=== PATIENT | female | born 1990 | race American Indian/Alaskan Native ===

== ENCOUNTER 2020-02-14 13:41 | Emergency (ER) | payer MEDICARE ==
--- NOTE | 2020-02-14 16:10 | Emergency Department Report ---
ED General Adult HPI - General Chief complaint: Skin Rash Stated complaint: RASH/FACE Time Seen by Provider: 02/14/20 15:47 Source: patient Mode of arrival: Ambulatory Limitations: No Limitations - History of Present Illness Initial comments: 29-year-old -[place] female patient presents with complaints of possible herpes infection to the right side of her neck x3 days. She states the area is mildly itchy and denies any pain. Patient also denies any previous history of herpes, fever/chills/sweats, drainage, redness, or swelling to the area. - Related Data Allergies Allergy/AdvReac Type Severity Reaction Status Date / Time No Known Allergies Allergy Unverified 02/14/20 13:53 ED Review of Systems ROS: Stated complaint: RASH/FACE Other details as noted in HPI Constitutional: denies: chills, diaphoresis, fever, malaise, weakness ENT: denies: throat pain Respiratory: denies: cough Skin: lesions. denies: change in color ED Past Medical Hx - Past Medical History Previous Medical History?: Yes Hx Psychiatric Treatment: Yes Hx Asthma: Yes Additional medical history: Herpes ED Physical Exam - General Limitations: No Limitations General appearance: alert, in no apparent distress - Head Head exam: Present: atraumatic, normocephalic - Eye Eye exam: Present: normal appearance - ENT ENT exam: Present: mucous membranes moist - Neck Neck exam: Present: normal inspection, full ROM. Absent: tenderness - Respiratory Respiratory exam: Absent: respiratory distress - Cardiovascular Cardiovascular Exam: Present: regular rate - Neurological Exam Neurological exam: Present: alert, oriented X3 - Psychiatric Psychiatric exam: Present: normal affect, normal mood - Skin Skin exam: Present: warm, dry, intact, normal color, other (2 small pimples noted to right upper neck without any surrounding erythema, induration or tenderness to palpation). Absent: rash ED Course Vital Signs 02/14/20 02/14/20 13:53 16:12 Temperature 99 F Pulse Rate 74 Respiratory 16 Rate Blood Pressure 104/37 105/61 [Right] O2 Sat by Pulse 96 Oximetry ED Medical Decision Making - Medical Decision Making 29-year-old -[place] female patient presents with complaints of possible herpes infection to the right side of her neck x3 days. She states the area is mildly itchy and denies any pain. Patient also denies any previous history of herpes, fever/chills/sweats, drainage, redness, or swelling to the area. 2 small pimples noted on exam without any signs of cellulitis. She is well- appearing, her vitals are normal, she is stable for discharge home. Recommend OTC acne face wash and follow-up with PCP. Strict return precautions were discussed in detail with patient who verbalized understanding. Critical care attestation.: If time is entered above; I have spent that time in minutes in the direct care of this critically ill patient, excluding procedure time. ED Disposition Clinical Impression: Acne Qualifiers: Acne type: other acne Qualified Code(s): L70.8 - Other acne Disposition: DC-01 TO HOME OR SELFCARE Is pt being admited?: No Condition: Stable Instructions: Acne (ED) Referrals: [facility] [Provider Group] - 3-5 Days
[2020-02-14 16:12] VITALS: BP 105/61
== END 2020-02-14 16:18 | disposition home or self-care (01) ==
LOC: ED 13:41
DX: L70.8 Other acne (principal); J45.909 Unspecified asthma, uncomplicated
CPT/HCPCS: 99281

== ENCOUNTER 2021-03-29 09:31 | Emergency (ER) | payer MEDICARE ==
[2021-03-29 09:37] VITALS: BP 117/75
[2021-03-29] MEDS ORDERED: LORazepam 2 MG/ML VIAL IM PRN (10:48)
[2021-03-29] MEDS ORDERED: HALOPERIDOL LACTATE 5 MG/1 ML INJ IM PRN (10:48)
[2021-03-29] MEDS ORDERED: diphenhydrAMINE 25 MG CAP PO PRN (10:48)
--- NOTE | 2021-03-29 10:49 | Emergency Department Report ---
ED Psych HPI - General Chief Complaint: Psych Stated Complaint: suicidal ideation Time Seen by Provider: 03/29/21 09:45 Source: patient, RN notes reviewed Mode of arrival: Ambulatory Limitations: No Limitations - History of Present Illness Initial Comments: The patient is a 31-year-old female. She has a history of psychiatric disease. She is not known to myself previously. She presents to the ER today with a complaint of painless suicidality and plan to kill herself. She denies physical pain. She denies overdose. She denies cough, taste symptoms, and urinary symptoms. She is experiencing hallucinations. She is not currently accompanied by friends or family at this time for collateral information. Patient states her symptoms are constant. She does not describe exacerbating factors relieving factors or aggravating factors MD Complaint: suicidal ideation, feels depressed Associated Psychiatric Symptoms: depression, suicidal ideation, auditory hallucinations History of same: Yes Quality: constant Improves With: none Worsens With: none If Self Harm: admits thoughts of, has plan - Related Data Allergies Allergy/AdvReac Type Severity Reaction Status Date / Time No Known Allergies Allergy Unverified 02/14/20 13:53 ED Review of Systems ROS: Stated complaint: suicidal ideation Other details as noted in HPI Constitutional: denies: fever Eyes: denies: eye discharge ENT: denies: epistaxis Respiratory: denies: cough Cardiovascular: denies: chest pain Gastrointestinal: denies: abdominal pain Genitourinary: denies: dysuria Psychiatric: anxiety, depression, suicidal thoughts. denies: homicidal thoughts ED Past Medical Hx - Past Medical History Previous Medical History?: Yes Hx Psychiatric Treatment: Yes Hx Asthma: Yes Additional medical history: Herpes - Surgical History Past Surgical History?: No ED Physical Exam - General Limitations: No Limitations General appearance: alert, in no apparent distress - Head Head exam: Present: atraumatic, normocephalic - Eye Eye exam: Present: normal appearance, EOMI. Absent: nystagmus - ENT ENT exam: Present: normal exam, normal orophraynx, mucous membranes moist, normal external ear exam - Neck Neck exam: Present: normal inspection, full ROM. Absent: tenderness, meningismus - Respiratory Respiratory exam: Present: normal lung sounds bilaterally. Absent: respiratory distress, wheezes, rales, rhonchi, stridor, decreased breath sounds - Cardiovascular Cardiovascular Exam: Present: regular rate, normal rhythm, normal heart sounds. Absent: bradycardia, tachycardia, irregular rhythm, systolic murmur, diastolic murmur, rubs, gallop - GI/Abdominal GI/Abdominal exam: Present: soft. Absent: distended, tenderness, guarding, rebound, rigid, pulsatile mass - Extremities Exam Extremities exam: Present: normal inspection, full ROM, other (2+ pulses noted in the bilateral upper and lower extremities. There is no palpable cord. negative Homans sign. Muscular compartments are soft. The pelvis is stable.). Absent: pedal edema, joint swelling, calf tenderness - Back Exam Back exam: Present: normal inspection, full ROM. Absent: tenderness, CVA tenderness (R), CVA tenderness (L), paraspinal tenderness, vertebral tenderness - Neurological Exam Neurological exam: Present: alert, normal gait, other (No facial droop. Tongue midline. Extraocular movements intact bilaterally. Facial sensation intact to light touch in V1, V2, V3 distribution bilaterally. 5 and a 5 strength in 4 extremities. Sensation intact to light touch in 4 extremities.). Absent: motor sensory deficit - Psychiatric Psychiatric exam: Present: suicidal ideation, other (Patient speaks with an infantile voice) - Skin Skin exam: Present: warm, dry, intact, normal color. Absent: rash ED Course Vital Signs 03/29/21 09:34 Temperature 97.9 F Pulse Rate 70 Respiratory 16 Rate Blood Pressure 117/75 [Left] O2 Sat by Pulse 99 Oximetry - Reevaluation(s) Reevaluation #1: 03/29/21 11:35 Differential diagnosis, including but not limited to: Depression, psychosis, medical clearance for psychiatric placement Assessment and plan: 31-year-old female, who was afebrile, with reassuring vital signs, he was in no acute distress, who is calm and cooperative, who presents to the ER today with a complaint of hallucinations and suicidality. She meets criteria for 1013 hold/involuntary hold. I have filled out and ordered 1013. Screening laboratory studies ordered. Psychiatric consultation ordered. Urinalysis pending. Covid swab ordered in anticipation of psychiatric disposition and placement. 03/29/21 12:55 Laboratory studies are reviewed and are unremarkable. Psychiatric consultation is appreciated. At this point in time, this patient does not appear to have an immediate medical contraindication to psychiatric admission, evaluation, consultation and placement. ED Medical Decision Making - Lab Data Result diagrams: 03/29/21 10:55 03/29/21 10:55 Vital Signs 03/29/21 09:34 Temperature 97.9 F Pulse Rate 70 Respiratory 16 Rate Blood Pressure 117/75 [Left] O2 Sat by Pulse 99 Oximetry Lab Results 03/29/21 03/29/21 03/29/21 Range/Units 10:55 10:55 10:55 WBC 3.7 L (4.5-11.0) K/mm3 RBC 4.60 (3.65-5.03) M/mm3 Hgb 12.8 (10.1-14.3) gm/dl Hct 39.8 (30.3-42.9) % MCV 86 (79-97) fl MCH 28 (28-32) pg MCHC 32 (30-34) % RDW 14.8 (13.2-15.2) % Plt Count 266 (140-440) K/mm3 Lymph % (Auto) 34.2 (13.4-35.0) % Andrew % (Auto) 10.2 H (0.0-7.3) % Eos % (Auto) 5.2 H (0.0-4.3) % Baso % (Auto) 1.7 (0.0-1.8) % Lymph # (Auto) 1.3 (1.2-5.4) K/mm3 Andrew # (Auto) 0.4 (0.0-0.8) K/mm3 Eos # (Auto) 0.2 (0.0-0.4) K/mm3 Baso # (Auto) 0.1 (0.0-0.1) K/mm3 Seg Neutrophils % 48.7 (40.0-70.0) % Seg Neutrophils # 1.8 (1.8-7.7) K/mm3 Sodium 138 (137-145) mmol/L Potassium 4.2 (3.6-5.0) mmol/L Chloride 101.7 (98-107) mmol/L Carbon Dioxide 22 (22-30) mmol/L Anion Gap 19 mmol/L BUN 11 (7-17) mg/dL Creatinine 0.7 (0.6-1.2) mg/dL Estimated GFR > 60 ml/min BUN/Creatinine Ratio 16 % Glucose 85 (65-100) mg/dL Calcium 8.8 (8.4-10.2) mg/dL HCG, Qual (Negative) Acetaminophen 5.0 L (10.0-30.0) ug/mL 03/29/21 Range/Units 10:55 WBC (4.5-11.0) K/mm3 RBC (3.65-5.03) M/mm3 Hgb (10.1-14.3) gm/dl Hct (30.3-42.9) % MCV (79-97) fl MCH (28-32) pg MCHC (30-34) % RDW (13.2-15.2) % Plt Count (140-440) K/mm3 Lymph % (Auto) (13.4-35.0) % Andrew % (Auto) (0.0-7.3) % Eos % (Auto) (0.0-4.3) % Baso % (Auto) (0.0-1.8) % Lymph # (Auto) (1.2-5.4) K/mm3 Andrew # (Auto) (0.0-0.8) K/mm3 Eos # (Auto) (0.0-0.4) K/mm3 Baso # (Auto) (0.0-0.1) K/mm3 Seg Neutrophils % (40.0-70.0) % Seg Neutrophils # (1.8-7.7) K/mm3 Sodium (137-145) mmol/L Potassium (3.6-5.0) mmol/L Chloride (98-107) mmol/L Carbon Dioxide (22-30) mmol/L Anion Gap mmol/L BUN (7-17) mg/dL Creatinine (0.6-1.2) mg/dL Estimated GFR ml/min BUN/Creatinine Ratio % Glucose (65-100) mg/dL Calcium (8.4-10.2) mg/dL HCG, Qual Negative (Negative) Acetaminophen (10.0-30.0) ug/mL Lab Results 03/29/21 03/29/21 03/29/21 Range/Units 10:55 10:55 10:55 WBC 3.7 L (4.5-11.0) K/mm3 RBC 4.60 (3.65-5.03) M/mm3 Hgb 12.8 (10.1-14.3) gm/dl Hct 39.8 (30.3-42.9) % MCV 86 (79-97) fl MCH 28 (28-32) pg MCHC 32 (30-34) % RDW 14.8 (13.2-15.2) % Plt Count 266 (140-440) K/mm3 Lymph % (Auto) 34.2 (13.4-35.0) % Andrew % (Auto) 10.2 H (0.0-7.3) % Eos % (Auto) 5.2 H (0.0-4.3) % Baso % (Auto) 1.7 (0.0-1.8) % Lymph # (Auto) 1.3 (1.2-5.4) K/mm3 Andrew # (Auto) 0.4 (0.0-0.8) K/mm3 Eos # (Auto) 0.2 (0.0-0.4) K/mm3 Baso # (Auto) 0.1 (0.0-0.1) K/mm3 Seg Neutrophils % 48.7 (40.0-70.0) % Seg Neutrophils # 1.8 (1.8-7.7) K/mm3 Sodium 138 (137-145) mmol/L Potassium 4.2 (3.6-5.0) mmol/L Chloride 101.7 (98-107) mmol/L Carbon Dioxide 22 (22-30) mmol/L Anion Gap 19 mmol/L BUN 11 (7-17) mg/dL Creatinine 0.7 (0.6-1.2) mg/dL Estimated GFR > 60 ml/min BUN/Creatinine Ratio 16 % Glucose 85 (65-100) mg/dL Calcium 8.8 (8.4-10.2) mg/dL TSH 0.639 (0.270-4.200) mlU/mL HCG, Qual (Negative) Urine Color (Yellow) Urine Turbidity (Clear) Urine pH (5.0-7.0) Ur Specific [place] (1.003-1.030) Urine Protein (Negative) mg/dL Urine Glucose (UA) (Negative) mg/dL Urine Ketones (Negative) mg/dL Urine Blood (Negative) Urine Nitrite (Negative) Urine Bilirubin (Negative) Urine Urobilinogen (<2.0) mg/dL Ur Leukocyte Esterase (Negative) Urine WBC (Auto) (0.0-6.0) /HPF Urine RBC (Auto) (0.0-6.0) /HPF U Epithel Cells (Auto) (0-13.0) /HPF Urine Mucus /HPF Salicylates (2.8-20.0) mg/dL Urine Opiates Screen Urine Methadone Screen Acetaminophen (10.0-30.0) ug/mL Ur Barbiturates Screen Ur Phencyclidine Scrn Ur Amphetamines Screen U Benzodiazepines Scrn Urine Cocaine Screen U Marijuana (THC) Screen Drugs of Abuse Note Plasma/Serum Alcohol (0-0.07) % 03/29/21 03/29/21 03/29/21 Range/Units 10:55 10:55 10:55 WBC (4.5-11.0) K/mm3 RBC (3.65-5.03) M/mm3 Hgb (10.1-14.3) gm/dl Hct (30.3-42.9) % MCV (79-97) fl MCH (28-32) pg MCHC (30-34) % RDW (13.2-15.2) % Plt Count (140-440) K/mm3 Lymph % (Auto) (13.4-35.0) % Andrew % (Auto) (0.0-7.3) % Eos % (Auto) (0.0-4.3) % Baso % (Auto) (0.0-1.8) % Lymph # (Auto) (1.2-5.4) K/mm3 Andrew # (Auto) (0.0-0.8) K/mm3 Eos # (Auto) (0.0-0.4) K/mm3 Baso # (Auto) (0.0-0.1) K/mm3 Seg Neutrophils % (40.0-70.0) % Seg Neutrophils # (1.8-7.7) K/mm3 Sodium (137-145) mmol/L Potassium (3.6-5.0) mmol/L Chloride (98-107) mmol/L Carbon Dioxide (22-30) mmol/L Anion Gap mmol/L BUN (7-17) mg/dL Creatinine (0.6-1.2) mg/dL Estimated GFR ml/min BUN/Creatinine Ratio % Glucose (65-100) mg/dL Calcium (8.4-10.2) mg/dL TSH (0.270-4.200) mlU/mL HCG, Qual (Negative) Urine Color (Yellow) Urine Turbidity (Clear) Urine pH (5.0-7.0) Ur Specific [place] (1.003-1.030) Urine Protein (Negative) mg/dL Urine Glucose (UA) (Negative) mg/dL Urine Ketones (Negative) mg/dL Urine Blood (Negative) Urine Nitrite (Negative) Urine Bilirubin (Negative) Urine Urobilinogen (<2.0) mg/dL Ur Leukocyte Esterase (Negative) Urine WBC (Auto) (0.0-6.0) /HPF Urine RBC (Auto) (0.0-6.0) /HPF U Epithel Cells (Auto) (0-13.0) /HPF Urine Mucus /HPF Salicylates < 0.3 L (2.8-20.0) mg/dL Urine Opiates Screen Urine Methadone Screen Acetaminophen 5.0 L (10.0-30.0) ug/mL Ur Barbiturates Screen Ur Phencyclidine Scrn Ur Amphetamines Screen U Benzodiazepines Scrn Urine Cocaine Screen U Marijuana (THC) Screen Drugs of Abuse Note Plasma/Serum Alcohol < 0.01 (0-0.07) % 03/29/21 03/29/21 03/29/21 Range/Units 10:55 11:57 11:57 WBC (4.5-11.0) K/mm3 RBC (3.65-5.03) M/mm3 Hgb (10.1-14.3) gm/dl Hct (30.3-42.9) % MCV (79-97) fl MCH (28-32) pg MCHC (30-34) % RDW (13.2-15.2) % Plt Count (140-440) K/mm3 Lymph % (Auto) (13.4-35.0) % Andrew % (Auto) (0.0-7.3) % Eos % (Auto) (0.0-4.3) % Baso % (Auto) (0.0-1.8) % Lymph # (Auto) (1.2-5.4) K/mm3 Andrew # (Auto) (0.0-0.8) K/mm3 Eos # (Auto) (0.0-0.4) K/mm3 Baso # (Auto) (0.0-0.1) K/mm3 Seg Neutrophils % (40.0-70.0) % Seg Neutrophils # (1.8-7.7) K/mm3 Sodium (137-145) mmol/L Potassium (3.6-5.0) mmol/L Chloride (98-107) mmol/L Carbon Dioxide (22-30) mmol/L Anion Gap mmol/L BUN (7-17) mg/dL Creatinine (0.6-1.2) mg/dL Estimated GFR ml/min BUN/Creatinine Ratio % Glucose (65-100) mg/dL Calcium (8.4-10.2) mg/dL TSH (0.270-4.200) mlU/mL HCG, Qual Negative (Negative) Urine Color Yellow (Yellow) Urine Turbidity Slightly-cloudy (Clear) Urine pH 6.0 (5.0-7.0) Ur Specific [place] 1.027 (1.003-1.030) Urine Protein <15 mg/dl (Negative) mg/dL Urine Glucose (UA) Neg (Negative) mg/dL Urine Ketones Neg (Negative) mg/dL Urine Blood Neg (Negative) Urine Nitrite Neg (Negative) Urine Bilirubin Neg (Negative) Urine Urobilinogen 2.0 (<2.0) mg/dL Ur Leukocyte Esterase Neg (Negative) Urine WBC (Auto) < 1.0 (0.0-6.0) /HPF Urine RBC (Auto) 2.0 (0.0-6.0) /HPF U Epithel Cells (Auto) 13.0 (0-13.0) /HPF Urine Mucus 1+ /HPF Salicylates (2.8-20.0) mg/dL Urine Opiates Screen Negative Urine Methadone Screen Negative Acetaminophen (10.0-30.0) ug/mL Ur Barbiturates Screen Negative Ur Phencyclidine Scrn Negative Ur Amphetamines Screen Negative U Benzodiazepines Scrn Negative Urine Cocaine Screen Negative U Marijuana (THC) Screen Negative Drugs of Abuse Note Disclamer Plasma/Serum Alcohol (0-0.07) % Critical care attestation.: If time is entered above; I have spent that time in minutes in the direct care of this critically ill patient, excluding procedure time. ED Disposition Clinical Impression: Medical clearance for psychiatric admission Disposition: [address] [place] [address] Is pt being admited?: No Does the pt Need Aspirin: No Condition: Good Referrals: PRIMARY CARE,MD [Primary Care Provider] - 3-5 Days
--- NOTE | 2021-03-29 11:24 | Consultation ---
History of Present Illness - Reason for Consult Consult date: 03/29/21 Reason for consult: mental health evaluation - History of Present Psychiatric Illness The patient is a 31 year old female with history of Schizophrenia, Bipolar, and Anxiety disorder. In my interview with the patient, she presents with disorganized thoughts. She endorses auditory and visual hallucinations stating " I see her the so called August ,and I hear voices telling me to kill myself." The patient reports going to [facility] out-patient, states she is on Abilify Maintena WEST however, unsure if the information is accurate due to the patients current mentation. Diagnoses:Schizophrenia, Bipolar, Anxiety Suicide attempts or Self-harm behavior: Yes Prior psychiatric hospitalizations: Yes Substance Abuse history:Denies Previous psychiatric medications tried:Unknown Outpatient treatment: [facility] PAST MEDICAL HISTORY: None reported or document Family Psychiatric History: None reported or documented SOCIAL HISTORY Marital Status: Single Living Arrangements: Lives with uncle Employment Status: employed Access to guns/weapons: Denies Education: unknown History of Abuse: Denies Legal History: unknown REVIEW OF SYSTEMS Constitutional: Negative for weight loss ENT: Negative for stridor Respiratory: Negative for cough or hemoptysis All other systems reviewed and are negative MENTAL STATUS EXAMINATION General Appearance and Behavior: Age appropriate, good hygiene, wearing appropriate clothes. calm, cooperative Cooperation: Cooperative Psychomotor Behavior: Psychomotor normal Mood: hallucinations Affect and affective range: congruent with mood Thought Process: hallucinations Thought Content:Suicidal Speech: slurred Suicidal Ideation: Yes Homicidal Ideation: Denies Hallucinations: Auditory/visual Delusions: paranoid Impulse Control: Normal Insight and Judgment: Limited insight and poorjudgment Memory: Limited Attention: Distractible Orientation: a/o x 2 Assessment (1)Schizophrenia (2) Current Visit: Yes Status: Acute Treatment Plan Continue 1013 Start Abilify 10 mg po daily Continue previously prescribed medications. The patient to comply with previously prescribed medications Risks, benefits and alternatives of medications discussed with the patient, questions answered and consent obtained from patient. PSYCHOTHERAPY: Supportive psychotherapy provided MEDICAL: Per primary team DELIRIUM PRECAUTIONS: Please re-orient patient frequently, keep lights on during the day, and minimize benzodiazepines and opiates as these medications could worsen patient's confusion. AIRLINE PILOT: Defer to primary DISPOSITION: Recommend acute psychiatric inpatient treatment. The sitter to give the patient resources and safety plan Will follow. Thanks Case staffed with Dr. Osuna Medications and Allergies Objective Medications and Allergies Medications and Allergies Allergies Allergy/AdvReac Type Severity Reaction Status Date / Time No Known Allergies Allergy Unverified 02/14/20 13:53 Active Meds: Active Medications Diphenhydramine HCl (Diphenhydramine 25 Mg Cap) 50 mg PO QHS PRN PRN Reason: Insomnia Haloperidol Lactate (Haloperidol Lactate 5 Mg/1 Ml Inj) 5 mg IM Q6HR PRN PRN Reason: Agitation Lorazepam (Lorazepam 2 Mg/Ml Vial) 2 mg IM Q4HR PRN PRN Reason: Agitation Mental Status Exam - Vital signs Last Vital Signs Temp 97.9 F 03/29/21 09:34 Pulse 70 03/29/21 09:34 Resp 16 03/29/21 09:34 BP 117/75 03/29/21 09:34 Pulse Ox 99 03/29/21 09:34 Results Result Diagrams: 03/29/21 10:55 All other labs normal.
[2021-03-29 11:25] LABS: Blood Urea Nitrogen 11 mg/dL (7-17); Calcium 8.8 mg/dL (8.4-10.2); Hemolysis Index 13
[2021-03-29 11:30] LABS: BUN/Creatinine Ratio 16
[2021-03-29 11:34] LABS: Basophils # (Auto) 0.1 K/mm3 (0.0-0.1); Basophils % (Auto) 1.7 % (0.0-1.8); Eosinophils # (Auto) 0.2 K/mm3 (0.0-0.4); Eosinophils % (Auto) 5.2 % (0.0-4.3); Hematocrit 39.8 % (30.3-42.9); Hemoglobin 12.8 gm/dl (10.1-14.3); Lymphocytes # (Auto) 1.3 K/mm3 (1.2-5.4); Lymphocytes % (Auto) 34.2 % (13.4-35.0); Mean Corpuscular HGB Conc 32 % (30-34); Mean Corpuscular Volume 86 fl (79-97); Monocytes # (Auto) 0.4 K/mm3 (0.0-0.8); Monocytes % (Auto) 10.2 % (0.0-7.3); Platelet Count 266 K/mm3 (140-440); Red Cell Distribution Width 14.8 % (13.2-15.2)
[2021-03-29] MEDS ORDERED: ARIPiprazole 10 MG TAB PO SCH (12:00)
[2021-03-29 12:07] LABS: Bilirubin,Urine NEG (Negative); Blood,Urine NEG (Negative); Color,Urine Yellow (Yellow); Mucus,Urine 1+ /HPF; Protein,Urine <15 mg/dL mg/dL (Negative); WBC,Urine < 1.0 /HPF (0.0-6.0)
[2021-03-29 12:17] LABS: Amphetamine Screen,Urine Negative; Benzodiazepines Screen,Urine Negative; Cannabinoid Screen,Urine Negative; Cocaine Screen,Urine Negative; Methadone Screen,Urine Negative; Opiate Screen,Urine Negative
== END 2021-03-29 18:36 ==
LOC: ED 09:31
DX: Z04.6 Encounter for general psychiatric examination, requested by authority (principal); R45.851 Suicidal ideations; J45.909 Unspecified asthma, uncomplicated; R94.6 Abnormal results of thyroid function studies
CPT/HCPCS: 36415; 80048; 80307; 80320; 81001; 84443; 84703; 85025; 99285; G0480

== ENCOUNTER 2021-05-01 11:09 | Emergency (ER) | payer MEDICARE ==
--- NOTE | 2021-05-01 11:57 | Emergency Department Report ---
ED Asthma HPI - General Chief Complaint: Adult Asthma Stated Complaint: COUGH/CHILLS Time Seen by Provider: 05/01/21 11:54 Source: patient Mode of arrival: Ambulatory Limitations: No Limitations - History of Present Illness Initial Comments: Patient presents secondary to an asthma exacerbation and cough. She has been out of her inhaler for over a month. She has had cough with congestion. She denies fever. She reports that her hands are little tingly as well. That has been present for weeks. She came in primarily because she needed a refill of her inhaler. She one of the other issues discussed as well. There is no recent travel or trauma. She has had no recent illness. She has no history of chest pain or back pain. She has had no vomiting or diarrhea. - Related Data Previous Rx's Medication Instructions Recorded Last Taken Type Albuterol Sulfate [Proventil Hfa] 2 puff IH 4XD #1 hfa.aer.ad 05/01/21 Unknown Rx Guaifenesin/Pseudoephedrne HCl 1 each PO BID #20 tab.er.12h 05/01/21 Unknown Rx [Mucinex D ER Tablet] Allergies Allergy/AdvReac Type Severity Reaction Status Date / Time Penicillins Allergy Unknown Unknown Verified 05/01/21 11:54 ED Review of Systems ROS: Stated complaint: COUGH/CHILLS Other details as noted in HPI Comment: All other systems reviewed and negative Constitutional: denies: fever Eyes: denies: eye pain ENT: denies: throat pain Respiratory: see HPI Cardiovascular: denies: chest pain Endocrine: denies: unexplained weight loss Gastrointestinal: denies: abdominal pain Genitourinary: denies: dysuria Musculoskeletal: denies: back pain Skin: denies: rash Neurological: denies: headache Hematological/Lymphatic: denies: easy bruising ED Past Medical Hx - Past Medical History Hx Psychiatric Treatment: Yes Hx Asthma: Yes Additional medical history: Herpes - Family History Family history: asthma - Medications Home Medications: Home Medications Medication Instructions Recorded Confirmed Last Taken Type Albuterol Sulfate [Proventil Hfa] 2 puff IH 4XD #1 hfa.aer.ad 05/01/21 Unknown Rx Guaifenesin/Pseudoephedrne HCl 1 each PO BID #20 tab.er.12h 05/01/21 Unknown Rx [Mucinex D ER Tablet] ED Physical Exam - General Limitations: No Limitations, Other (Pulse ox noted and normal) General appearance: alert, in no apparent distress - Head Head exam: Present: atraumatic, normocephalic - Eye Eye exam: Present: normal appearance, EOMI - ENT ENT exam: Present: normal orophraynx, normal external ear exam - Neck Neck exam: Present: normal inspection, meningismus - Respiratory Respiratory exam: Present: normal lung sounds bilaterally. Absent: respiratory distress - Cardiovascular Cardiovascular Exam: Present: regular rate, normal rhythm - GI/Abdominal GI/Abdominal exam: Present: soft. Absent: tenderness - Extremities Exam Extremities exam: Present: normal capillary refill - Back Exam Back exam: Absent: CVA tenderness (R), CVA tenderness (L) - Neurological Exam Neurological exam: Present: alert, normal gait - Psychiatric Psychiatric exam: Present: normal affect, normal mood - Skin Skin exam: Present: warm ED Course Vital Signs 05/01/21 11:51 Temperature 98.1 F Pulse Rate 65 Respiratory 17 Rate Blood Pressure 98/67 [Right] O2 Sat by Pulse 95 Oximetry - Reevaluation(s) Reevaluation #1: 05/01/21 12:13 Patient was discharged ED Medical Decision Making - Medical Decision Making Patient presents with respiratory issues and prescription refill. She is in no distress. She not actively wheezing. She can certainly get a prescription refill. She reported having some phlegm but is not coughing here. There is no evidence of respiratory infection, but we can certainly prescribe Mucinex. She does not have symptoms of suggest pneumonia. There is no evidence of congestive heart failure. She does not appear to be toxic. Critical Care Time: No Critical care attestation.: If time is entered above; I have spent that time in minutes in the direct care of this critically ill patient, excluding procedure time. ED Disposition Clinical Impression: Medication refill, Paresthesias Asthma exacerbation Qualifiers: Asthma severity: mild Asthma persistence: intermittent Qualified Code(s): J45.21 - Mild intermittent asthma with (acute) exacerbation Disposition: 01 HOME / SELF CARE / HOMELESS Is pt being admited?: No Condition: Stable Instructions: Asthma, Adult, Peak Flow Meter Additional Instructions: DRINK WATER. USE YOUR INHALER. SEE YOUR DOCTOR FOR RECHECK. Prescriptions: Guaifenesin/Pseudoephedrne HCl [Mucinex D ER Tablet] 1 each PO BID #20 tab.er.12h Albuterol Sulfate [Proventil Hfa] 2 puff IH 4XD #1 hfa.aer.ad Referrals: PRIMARY CARE, [Primary Care Provider] - 3-5 Days
[2021-05-01 12:24] VITALS: BP 120/70
== END 2021-05-01 12:24 | disposition home or self-care (01) ==
LOC: ED 11:09
DX: J45.901 Unspecified asthma with (acute) exacerbation (principal); Z76.0 Encounter for issue of repeat prescription; R20.0 Anesthesia of skin; Z88.0 Allergy status to penicillin; Z79.899 Other long term (current) drug therapy
CPT/HCPCS: 99282

== ENCOUNTER 2021-07-10 10:03 | Emergency (ER) | payer MEDICARE ==
[2021-07-10] MEDS ORDERED: BENZONATATE 100 MG CAP PO ONE (13:07)
--- NOTE | 2021-07-10 13:43 | Vascular Lab Report ---
. DUPLEX DOPPLER LOWER EXTREMITY VEINS, RIGHT INDICATION / CLINICAL INFORMATION: RLE swelling. TECHNIQUE: Duplex doppler imaging was performed through the veins of the right lower extremity using venous comp ression and other maneuvers. COMPARISON: None available. FINDINGS: RIGHT COMMON FEMORAL VEIN: Negative. RIGHT FEMORAL VEIN: Negative. RIGHT POPLITEAL VEIN: Negative. RIGHT CALF VEINS: Negative. ADDITIONAL FINDINGS: None. IMPRESSION: 1. No sonographic evidence for DVT in the right lower extremity. Signer Name: Valentin Lares MD Signed: 07/10/2021 1:39 PM Workstation Name: [email or web address]
--- NOTE | 2021-07-10 14:12 | Emergency Department Report ---
ED General Adult HPI - General Chief complaint: Upper Respiratory Infection Stated complaint: COUGH/PROBLEMS WALKING Source: patient Mode of arrival: Ambulatory Limitations: No Limitations - History of Present Illness Initial comments: Patient is a 31-year-old female here with complaint of cough. Patient has history of asthma. Patient also has a complaint of a right knee pain. She states that she has had this pain for several weeks and notes that it is swollen. She is unsure if she had any trauma to the knee. She also complains of some mild abdominal pain. She has not had nausea or vomiting. She also states this has been going on for quite a while. - Related Data Previous Rx's Medication Instructions Recorded Last Taken Type Albuterol Sulfate [Proventil Hfa] 2 puff IH 4XD #1 hfa.aer.ad 07/10/21 Unknown Rx Guaifenesin/Pseudoephedrne HCl 1 each PO BID #20 tab.er.12h 07/10/21 Unknown Rx [Mucinex D ER Tablet] Allergies Allergy/AdvReac Type Severity Reaction Status Date / Time Penicillins Allergy Unknown Unknown Verified 05/01/21 11:54 ED Review of Systems ROS: Stated complaint: COUGH/PROBLEMS WALKING Other details as noted in HPI Constitutional: denies: chills, fever Eyes: denies: eye pain, eye discharge, vision change Respiratory: cough. denies: shortness of breath, SOB with exertion Cardiovascular: denies: chest pain, palpitations Endocrine: no symptoms reported Gastrointestinal: abdominal pain. denies: nausea, vomiting Genitourinary: denies: urgency, dysuria, discharge Musculoskeletal: denies: back pain, joint swelling, arthralgia Skin: denies: rash, lesions Neurological: denies: headache, weakness, paresthesias Psychiatric: denies: anxiety, depression Hematological/Lymphatic: denies: easy bleeding, easy bruising ED Past Medical Hx - Past Medical History Hx Psychiatric Treatment: Yes Hx Asthma: Yes Additional medical history: Herpes - Medications Home Medications: Home Medications Medication Instructions Recorded Confirmed Last Taken Type Albuterol Sulfate [Proventil Hfa] 2 puff IH 4XD #1 hfa.aer.ad 07/10/21 Unknown Rx Guaifenesin/Pseudoephedrne HCl 1 each PO BID #20 tab.er.12h 07/10/21 Unknown Rx [Mucinex D ER Tablet] ED Physical Exam - General Limitations: No Limitations General appearance: alert, in no apparent distress - Head Head exam: Present: atraumatic, normocephalic - Eye Eye exam: Present: normal appearance - ENT ENT exam: Present: mucous membranes moist - Neck Neck exam: Present: normal inspection - Respiratory Respiratory exam: Present: normal lung sounds bilaterally. Absent: respiratory distress - Cardiovascular Cardiovascular Exam: Present: regular rate, normal rhythm. Absent: systolic murmur, diastolic murmur, rubs, gallop - GI/Abdominal GI/Abdominal exam: Present: soft, normal bowel sounds. Absent: tenderness - Rectal Rectal exam: Present: deferred - Extremities Exam Extremities exam: Present: joint swelling (Right knee, no instability noted) - Back Exam Back exam: Present: normal inspection - Neurological Exam Neurological exam: Present: alert - Psychiatric Psychiatric exam: Present: normal affect, normal mood - Skin Skin exam: Present: warm, dry, intact, normal color. Absent: rash ED Course Vital Signs 07/10/21 10:33 Temperature 97.6 F Pulse Rate 73 Respiratory 16 Rate Blood Pressure 108/76 [Left] O2 Sat by Pulse 97 Oximetry - Reevaluation(s) Reevaluation #1: 07/10/21 14:10 Doppler negative for DVT. ED Medical Decision Making - Medical Decision Making 31-year-old female here with complaint of cough. She also notes some mild abdominal pain, right knee pain. Plan for chest abdominal x-rays, x-ray of the right knee as well as ultrasound the right lower extremity. We will also give Tessalon Perles and patient likely to be discharged pending results. Critical care attestation.: If time is entered above; I have spent that time in minutes in the direct care of this critically ill patient, excluding procedure time. ED Disposition Clinical Impression: Knee pain, Cough Is pt being admited?: No Does the pt Need Aspirin: No Condition: Stable Instructions: Acute Knee Pain, Adult, Cough, Adult, [id number] Prescriptions: Guaifenesin/Pseudoephedrne HCl [Mucinex D ER Tablet] 1 each PO BID #20 tab.er .12h Albuterol Sulfate [Proventil Hfa] 2 puff IH 4XD #1 hfa.aer.ad Forms: Work/School Release Form(ED)
[2021-07-10 15:18] LABS: HCG Qualitative,Urine Negative (Negative)
--- NOTE | 2021-07-10 15:53 | Emergency Department Report ---
Blank Doc - Documentation Documentation: I assumed care with x-rays pending. X-rays were reviewed. Patient was discharged as written by the prior physician.
--- NOTE | 2021-07-10 16:00 | XRay Report ---
EXAMINATION: XR abd series w cxr 1V, INDICATION / CLINICAL INFORMATION: RLE swelling. COMPARISON: None available. FINDINGS: TUBES / LINES: None. CHEST: Visualized chest shows no significant abnormality. BOWEL GAS PATTERN: Bowel gas pattern is nonobstructive. Moderate colonic stool burden. FREE AIR / EXTRALUMINAL GAS: None seen. ADDITIONAL FINDINGS: Herniorrhaphy mesh noted overlying the abdomen. IMPRESSION: 1. No evidence of acute abnormality. 2. Moderate colonic stool burden, may reflect constipation. Signer Name: Valentin Lares MD Signed: 07/10/2021 3:56 PM Workstation Name: [id number]
--- NOTE | 2021-07-10 16:07 | XRay Report ---
RIGHT KNEE 3 VIEW(S) INDICATION / CLINICAL INFORMATION: r knee swelling COMPARISON: None available. FINDINGS: BONES / JOINT(S): No acute fracture or subluxation. No significant arthritis. No significant joint ef fusion. SOFT TISSUES: No significant abnormality. ADDITIONAL FINDINGS: None. IMPRESSION: No acute osseous findings in the right knee. Signer Name: Valentin Lares MD Signed: 07/10/2021 4:03 PM Workstation Name: [id number]
[2021-07-10 17:08] VITALS: BP 95/60
== END 2021-07-10 17:08 ==
LOC: ED 10:03
DX: R05.9 Cough, unspecified (principal); M25.561 Pain in right knee; J45.909 Unspecified asthma, uncomplicated
CPT/HCPCS: 74022; 81025; 99284

== ENCOUNTER 2021-07-31 09:19 | Emergency (ER) | payer MEDICARE ==
[2021-07-31 09:23] VITALS: BP 124/82
--- NOTE | 2021-07-31 10:32 | Emergency Department Report ---
ED Psych HPI - General Chief Complaint: Psych Stated Complaint: HI-A/V HALLUCINATIONS Time Seen by Provider: 07/31/21 09:55 Source: patient, EMS Mode of arrival: Ambulatory - History of Present Illness Initial Comments: Patient is 31 years old female with history of bipolar and schizophrenia. Patient presented to the ER for mental health evaluation. Patient stated that she wanted to kill herself by biting herself. Patient also stated that she wanted to kill her friend August because August wanted to kill her. Patient stated that she is hearing voices asking her to kill herself. She also reported visual hallucination. Patient looks depressed. MD Complaint: suicidal ideation, feels depressed -: days(s) Associated Psychiatric Symptoms: depression, suicidal ideation, homicidal ideation, auditory hallucinations, visual hallucinations Quality: constant Associated Symptoms: denies other symptoms If Self Harm: admits thoughts of, has plan - Related Data Previous Rx's Medication Instructions Recorded Last Taken Type Albuterol Sulfate [Proventil Hfa] 2 puff IH 4XD #1 hfa.aer.ad 07/10/21 Unknown Rx Guaifenesin/Pseudoephedrne HCl 1 each PO BID #20 tab.er.12h 07/10/21 Unknown Rx [Mucinex D ER Tablet] Allergies Allergy/AdvReac Type Severity Reaction Status Date / Time Penicillins Allergy Unknown Unknown Verified 07/31/21 09:22 ED Review of Systems ROS: Stated complaint: HI-A/V HALLUCINATIONS Other details as noted in HPI Comment: All other systems reviewed and negative Constitutional: denies: chills, fever Respiratory: denies: cough, shortness of breath, SOB with exertion, SOB at rest Cardiovascular: denies: chest pain, palpitations, dyspnea on exertion Gastrointestinal: denies: abdominal pain, nausea, vomiting, diarrhea, constipation, hematemesis, hematochezia Musculoskeletal: denies: back pain Neurological: denies: headache, weakness, numbness, paresthesias ED Past Medical Hx - Past Medical History Hx Psychiatric Treatment: Yes Hx Asthma: Yes Additional medical history: Herpes - Medications Home Medications: Home Medications Medication Instructions Recorded Confirmed Last Taken Type Albuterol Sulfate [Proventil Hfa] 2 puff IH 4XD #1 hfa.aer.ad 07/10/21 Unknown Rx Guaifenesin/Pseudoephedrne HCl 1 each PO BID #20 tab.er.12h 07/10/21 Unknown Rx [Mucinex D ER Tablet] ED Physical Exam - General Limitations: No Limitations General appearance: alert, in no apparent distress - Head Head exam: Present: atraumatic, normocephalic, normal inspection - Eye Eye exam: Present: normal appearance - ENT ENT exam: Present: normal exam, normal orophraynx, mucous membranes moist - Neck Neck exam: Present: normal inspection, full ROM. Absent: tenderness, meningismus - Respiratory Respiratory exam: Present: normal lung sounds bilaterally - Cardiovascular Cardiovascular Exam: Present: regular rate, normal rhythm, normal heart sounds - GI/Abdominal GI/Abdominal exam: Present: soft, normal bowel sounds. Absent: distended, tenderness, guarding, rebound, rigid, organomegaly, mass, bruit, pulsatile mass, hernia - Extremities Exam Extremities exam: Present: normal inspection, full ROM, normal capillary refill. Absent: tenderness - Back Exam Back exam: Present: normal inspection, full ROM. Absent: CVA tenderness (R), CVA tenderness (L) - Neurological Exam Neurological exam: Present: alert, oriented X3, CN II-XII intact, normal gait, reflexes normal. Absent: motor sensory deficit - Psychiatric Psychiatric exam: Present: depressed, homicidal ideation, suicidal ideation. Absent: anxious, flat affect, manic - Skin Skin exam: Present: warm, intact, normal color ED Course Vital Signs 07/31/21 09:20 Temperature 98.3 F Pulse Rate 82 Respiratory 18 Rate Blood Pressure 124/82 [Left] O2 Sat by Pulse 99 Oximetry ED Medical Decision Making - Lab Data Result diagrams: 07/31/21 10:12 07/31/21 10:12 Critical care attestation.: If time is entered above; I have spent that time in minutes in the direct care of this critically ill patient, excluding procedure time. ED Disposition Clinical Impression: Suicidal ideation Disposition: [address] [place] [address] Is pt being admited?: No Condition: Stable Referrals: LANE MESA MD [Primary Care Provider] - 3-5 Days
[2021-07-31 11:00] LABS: Blood Urea Nitrogen 11 mg/dL (7-17); Calcium 8.8 mg/dL (8.4-10.2); Hemolysis Index 10
--- NOTE | 2021-07-31 11:00 | Consultation ---
History of Present Illness - Reason for Consult Consult date: 07/31/21 Reason for consult: suicidal ideation - History of Present Psychiatric Illness ED Note: Patient is 31 years old female with history of bipolar and schizophrenia. Patient presented to the ER for mental health evaluation. Patient stated that she wanted to kill herself by biting herself. Patient also stated that she wanted to kill her friend Regina because Regina wanted to kill her. Patient stated that she is hearing voices asking her to kill herself. She also reported visual hallucination. Patient looks depressed. The patient was seen this morning. She reports ongoing suicidal ideation for the past 3 weeks stating " I don't want to be here no more, nobody cares about me." The patient endorses auditory/visual hallucinations stating " voices telling me August will kill me and seeing animals." Diagnoses:Schizophrenia, Bipolar, Anxiety Suicide attempts or Self-harm behavior: Yes Prior psychiatric hospitalizations: Yes Substance Abuse history:Denies Previous psychiatric medications tried:Unknown Outpatient treatment: [facility] PAST MEDICAL HISTORY: None reported or document Family Psychiatric History: None reported or documented SOCIAL HISTORY Marital Status: Single Living Arrangements: Lives with uncle Employment Status: employed Access to guns/weapons: Denies Education: unknown History of Abuse: Denies Legal History: unknown REVIEW OF SYSTEMS Constitutional: Negative for weight loss ENT: Negative for stridor Respiratory: Negative for cough or hemoptysis All other systems reviewed and are negative MENTAL STATUS EXAMINATION General Appearance and Behavior: Age appropriate, good hygiene, wearing appropriate clothes. calm, cooperative Cooperation: Cooperative Psychomotor Behavior: Psychomotor normal Mood: hallucinations Affect and affective range: congruent with mood Thought Process: hallucinations Thought Content:Suicidal Speech: slurred Suicidal Ideation: Yes Homicidal Ideation: Denies Hallucinations: Auditory/visual Delusions: paranoid Impulse Control: Normal Insight and Judgment: Limited insight and poorjudgment Memory: Limited Attention: Distractible Orientation: a/o x 2 Assessment (1)Schizophrenia (2) Current Visit: Yes Status: Acute Treatment Plan Continue 1013 Start Zyprexa 5mg po BID Continue previously prescribed medications. The patient to comply with previously prescribed medications Risks, benefits and alternatives of medications discussed with the patient, questions answered and consent obtained from patient. PSYCHOTHERAPY: Supportive psychotherapy provided MEDICAL: Per primary team DELIRIUM PRECAUTIONS: Please re-orient patient frequently, keep lights on during the day, and minimize benzodiazepines and opiates as these medications could worsen patient's confusion. INDUSTRIAL ORGANIZATION MANAGER: Defer to primary DISPOSITION: Recommend acute psychiatric inpatient treatment. The sitter to give the patient resources and safety plan Will follow. Thanks Case staffed with Dr. Osuna Medications and Allergies Allergies Allergy/AdvReac Type Severity Reaction Status Date / Time Penicillins Allergy Unknown Unknown Verified 07/31/21 09:22 Home Medications Medication Instructions Recorded Confirmed Last Taken Type Albuterol Sulfate [Proventil Hfa] 2 puff IH 4XD #1 hfa.aer.ad 07/10/21 Unknown Rx Guaifenesin/Pseudoephedrne HCl 1 each PO BID #20 tab.er.12h 07/10/21 Unknown Rx [Mucinex D ER Tablet] Mental Status Exam - Vital signs Last Vital Signs Temp 98.3 F 07/31/21 09:20 Pulse 82 07/31/21 09:20 Resp 18 07/31/21 09:20 BP 124/82 07/31/21 09:20 Pulse Ox 99 07/31/21 09:20 Results Result Diagrams: 07/31/21 10:12 All other labs normal.
[2021-07-31 11:07] LABS: BUN/Creatinine Ratio 16
[2021-07-31 11:22] LABS: Eosinophils # (Auto) 0.3 K/mm3 (0.0-0.4); Eosinophils % (Auto) 6.4 % (0.0-4.3); Hematocrit 38.6 % (30.3-42.9); Hemoglobin 12.4 gm/dl (10.1-14.3); Lymphocytes # (Auto) 1.4 K/mm3 (1.2-5.4); Lymphocytes % (Auto) 30.2 % (13.4-35.0); Mean Corpuscular HGB Conc 32 % (30-34); Mean Corpuscular Volume 87 fl (79-97); Monocytes # (Auto) 0.3 K/mm3 (0.0-0.8); Monocytes % (Auto) 7.4 % (0.0-7.3); Platelet Count 262 K/mm3 (140-440); Red Blood Count 4.43 M/mm3 (3.65-5.03); Red Cell Distribution Width 14.8 % (13.2-15.2)
[2021-07-31] MEDS ORDERED: OLANzapine ZYDIS 5 MG TAB PO SCH (12:00)
--- NOTE | 2021-07-31 14:38 | Ultrasound Report ---
ULTRASOUND OBSTETRIC REASON FOR EXAM: ABDOMINAL PAIN TECHNIQUE: Transabdominal and transvaginal ultrasound was performed to evaluate a first trimester pre gnancy. COMPARISON: None available. FINDINGS: FINDINGS: Tiny 4 mm cystic structure in the endometrium. No discrete decidual reaction identified. This is inde terminate for intrauterine gestational sac. No definite intrauterine is visualized. No susp icious adnexal mass is visualized. MATERNAL FINDINGS: Uterus: The uterus demonstrates a normal sonographic appearance. The uterus measures 8.5 cm. Endometr ial stripe measures 1.1 cm. Right ovary: The right ovary measures 3.3 cm. The right ovary demonstrates a normal sonographic appea terra and normal doppler flow. Left ovary: The left ovary measures 3.2 cm. The left ovary demonstrates a normal sonographic appearan ce and normal doppler flow. Cul-de-sac: There is no free fluid. IMPRESSION: Tiny cystic structure in the endometrium could reflect early intrauterine gestational sac, though thi s is indeterminate. No definite IUP is identified at this time. Recommend continued follow-up with be ta hCG and pelvic sonography, as clinically indicated. Signer Name: Valentin Lares MD Signed: 07/31/2021 2:34 PM Workstation Name: [id number]
== END 2021-07-31 20:30 ==
LOC: ED 09:19
DX: R45.851 Suicidal ideations (principal); J45.909 Unspecified asthma, uncomplicated; Z88.0 Allergy status to penicillin; Z20.822 Contact with and (suspected) exposure to COVID-19; Z33.1 Pregnant state, incidental
CPT/HCPCS: 36415; 76801; 80048; 84702; 84703; 85025; 99285; U0003; 80320; G0480

== ENCOUNTER 2021-08-08 22:08 | Emergency (ER) | payer MEDICARE ==
[2021-08-08 22:10] VITALS: BP 127/66
[2021-08-09 00:39] LABS: Bilirubin,Urine NEG (Negative); Blood,Urine NEG (Negative); Color,Urine Yellow (Yellow); Mucus,Urine FEW /HPF; Protein,Urine <15 mg/dL mg/dL (Negative); Urobilinogen,Urine < 2.0 mg/dL (<2.0)
[2021-08-09 00:42] LABS: Basophils % (Auto) 0.5 % (0.0-1.8); Eosinophils # (Auto) 0.2 K/mm3 (0.0-0.4); Eosinophils % (Auto) 3.1 % (0.0-4.3); Hematocrit 35.1 % (30.3-42.9); Hemoglobin 11.5 gm/dl (10.1-14.3); Lymphocytes # (Auto) 1.8 K/mm3 (1.2-5.4); Lymphocytes % (Auto) 22.8 % (13.4-35.0); Mean Corpuscular HGB Conc 33 % (30-34); Mean Corpuscular Volume 86 fl (79-97); Monocytes # (Auto) 0.8 K/mm3 (0.0-0.8); Platelet Count 232 K/mm3 (140-440); Red Blood Count 4.09 M/mm3 (3.65-5.03); Red Cell Distribution Width 14.5 % (13.2-15.2)
[2021-08-09 00:53] LABS: Alanine Aminotransferase 14 units/L (7-56); Albumin 3.9 g/dL (3.9-5); Blood Urea Nitrogen 18 mg/dL (7-17); Calcium 8.5 mg/dL (8.4-10.2); Hemolysis Index 15
[2021-08-09 00:59] LABS: BUN/Creatinine Ratio 26
--- NOTE | 2021-08-09 02:11 | Emergency Department Report ---
ED Abdominal Pain HPI - General Chief Complaint: Abdominal Pain Stated Complaint: ABDOMINAL PAIN Time Seen by Provider: 08/09/21 00:33 Source: patient Mode of arrival: Ambulatory Limitations: No Limitations - History of Present Illness Initial Comments: Patient is a 31-year-old G1, P0, A0. Who presents for complaint of abdominal pain bilateral lower for the past 2 days. Patient is followed by [facility]. However patient is been able to see same has an appointment in 1 week. MD Complaint: abdominal pain Severity scale (0 -10): 10 - Related Data Previous Rx's Medication Instructions Recorded Last Taken Type Albuterol Sulfate [Proventil Hfa] 2 puff IH 4XD #1 hfa.aer.ad 07/10/21 Unknown Rx Guaifenesin/Pseudoephedrne HCl 1 each PO BID #20 tab.er.12h 07/10/21 Unknown Rx [Mucinex D ER Tablet] Acetaminophen [Acetaminophen TAB] 650 mg PO Q6HR PRN #30 tablet 08/09/21 Unknown Rx Allergies Allergy/AdvReac Type Severity Reaction Status Date / Time Penicillins Allergy Unknown Unknown Verified 07/31/21 09:22 ED Review of Systems ROS: Stated complaint: ABDOMINAL PAIN Other details as noted in HPI Constitutional: denies: chills, fever Eyes: denies: eye pain, eye discharge, vision change ENT: denies: ear pain, throat pain Respiratory: no symptoms reported, cough Cardiovascular: denies: chest pain, palpitations, orthopnea Endocrine: no symptoms reported Gastrointestinal: vomiting. denies: abdominal pain, nausea, diarrhea Genitourinary: denies: urgency, dysuria, discharge Musculoskeletal: denies: back pain, joint swelling, arthralgia Skin: denies: rash, lesions Neurological: denies: headache, weakness, numbness, paresthesias, confusion, vertigo Psychiatric: denies: as per HPI ED Past Medical Hx - Past Medical History Previous Medical History?: Yes Hx Psychiatric Treatment: Yes (SCHIZOPHRENIA/BIPOLAR) Hx Asthma: Yes Additional medical history: Herpes - Surgical History Past Surgical History?: No - Medications Home Medications: Home Medications Medication Instructions Recorded Confirmed Last Taken Type Albuterol Sulfate [Proventil Hfa] 2 puff IH 4XD #1 hfa.aer.ad 07/10/21 Unknown Rx Guaifenesin/Pseudoephedrne HCl 1 each PO BID #20 tab.er.12h 07/10/21 Unknown Rx [Mucinex D ER Tablet] Acetaminophen [Acetaminophen TAB] 650 mg PO Q6HR PRN #30 tablet 08/09/21 Unknown Rx ED Physical Exam - General Limitations: No Limitations ED Course Vital Signs 08/08/21 22:10 Temperature 98 F Pulse Rate 88 Respiratory 18 Rate Blood Pressure 127/66 [Right] O2 Sat by Pulse 98 Oximetry ED Medical Decision Making - Lab Data Result diagrams: 08/09/21 00:05 08/09/21 00:05 Labs 08/09/21 08/09/21 08/09/21 00:03 00:05 00:05 WBC 7.9 RBC 4.09 Hgb 11.5 Hct 35.1 MCV 86 MCH 28 MCHC 33 RDW 14.5 Plt Count 232 Lymph % (Auto) 22.8 [place] % (Auto) 10.0 H Eos % (Auto) 3.1 Baso % (Auto) 0.5 Lymph # (Auto) 1.8 [place] # (Auto) 0.8 Eos # (Auto) 0.2 Baso # (Auto) 0.0 Seg Neutrophils % 63.6 Seg Neutrophils # 5.0 Sodium 136 L Potassium 3.9 Chloride 102.7 Carbon Dioxide 19 L Anion Gap 18 BUN 18 H Creatinine 0.7 Estimated GFR > 60 BUN/Creatinine Ratio 26 Glucose 86 Calcium 8.5 Total Bilirubin 0.20 AST 14 ALT 14 Alkaline Phosphatase 47 Total Protein 7.0 Albumin 3.9 Albumin/Globulin Ratio 1.3 HCG, Quant Urine Color Yellow Urine Turbidity Clear Urine pH 6.0 Ur Specific [place] 1.020 Urine Protein <15 mg/dl Urine Glucose (UA) Neg Urine Ketones Neg Urine Blood Neg Urine Nitrite Neg Urine Bilirubin Neg Urine Urobilinogen < 2.0 Ur Leukocyte Esterase Neg Urine WBC (Auto) 1.0 Urine RBC (Auto) 1.0 U Epithel Cells (Auto) < 1.0 Urine Mucus Few 08/09/21 00:52 WBC RBC Hgb Hct MCV MCH MCHC RDW Plt Count Lymph % (Auto) [place] % (Auto) Eos % (Auto) Baso % (Auto) Lymph # (Auto) [place] # (Auto) Eos # (Auto) Baso # (Auto) Seg Neutrophils % Seg Neutrophils # Sodium Potassium Chloride Carbon Dioxide Anion Gap BUN Creatinine Estimated GFR BUN/Creatinine Ratio Glucose Calcium Total Bilirubin AST ALT Alkaline Phosphatase Total Protein Albumin Albumin/Globulin Ratio HCG, Quant 02490 H Urine Color Urine Turbidity Urine pH Ur Specific [place] Urine Protein Urine Glucose (UA) Urine Ketones Urine Blood Urine Nitrite Urine Bilirubin Urine Urobilinogen Ur Leukocyte Esterase Urine WBC (Auto) Urine RBC (Auto) U Epithel Cells (Auto) Urine Mucus - Radiology Data Radiology results: report reviewed, image reviewed Ordering Physician: SHARLENE HERRERA NP Date of Service: 08/09/21 Procedure(s): US OB <= 14 weeks fetus Accession Number(s): [id number] cc: SHARLENE HERRERA NP ULTRASOUND OBSTETRIC INDICATION / CLINICAL INFORMATION: abd pain pos preg. Clinical Gestational Age (GA) in weeks, days: 8 weeks 2 days based on LMP of 06/12/2021 TECHNIQUE: Transabdominal. COMPARISON: OB ultrasound 07/31/2021 FINDINGS: GESTATIONAL SAC: Well-defined gestational sac with small collection of fluid along sac margin compatible with subchorionic hemorrhage. As visualized this finding appears to involve less than 25% of the sac margin. YOLK SAC: No significant abnormality. EMBRYO/FETUS: [place] fetus. - [place]-Rump Length = 0.25 cm = 5, 6 weeks, days - Heart Rate, beats per minute (if present) = 105 ADNEXA: Right ovary measures 3.6 x 1.9 x 2.8 cm. Left ovary measures 2.0 x 2.4 x 2.6 cm. The ovaries demonstrate no significant abnormality. FREE FLUID: None. ADDITIONAL FINDINGS: None. IMPRESSION: 1. Single, living intrauterine with estimated sonographic age of 5 weeks, 6 days. Active heart rate. 2. Subchorionic hemorrhage. Short-term follow-up ultrasound recommended to assess stability. Signer Name: Tyra Damian II, MD Signed: 08/09/2021 3:05 AM Workstation Name: [id number] Transcribed By: JANENE Dictated By: TYRA DAMIAN II, MD Electronically Authenticated By: TYRA DAMIAN II, MD Signed Date/Time: 08/09/21304 DD/ 9 TD/TT: - Medical Decision Making Ultrasound OB single IUP 5 weeks 6 days heart rate 105 bpm,, small subchorionic hemorrhage, labs noted normal plan DC to home, diagnosis , subchorionic hemorrhage, patient noted for pelvic rest, follow-up with [facility] call tomorrow for sooner appointment. Return to emergency department should symptoms worsen. Patient verbalized agreement understanding discharge plan. Patient DC'd home stable condition at this time. Critical care attestation.: If time is entered above; I have spent that time in minutes in the direct care of this critically ill patient, excluding procedure time. ED Disposition Clinical Impression: Vaginal bleeding during Qualifiers: Weeks of gestation: less than 8 weeks Qualified Code(s): Z3A.01 - Less than 8 weeks gestation of Subchorionic hemorrhage in first trimester Qualifiers: Fetus number: single or unspecified fetus Qualified Code(s): O41.8X10 - Other specified disorders of amniotic fluid and membranes, first trimester, not applicable or unspecified; O46.8X1 - Other antepartum hemorrhage, first trimester Disposition: 01 HOME / SELF CARE / HOMELESS Is pt being admited?: No Does the pt Need Aspirin: No Condition: Stable Instructions: Abdominal Pain (ED), Vaginal Bleeding During , First Trimester, Subchorionic Hematoma Additional Instructions: Medication as prescribed, follow-up with your doctor in 2 to 3 days. Return to emergency department should symptoms worsen. Prescriptions: Acetaminophen [Acetaminophen TAB] 650 mg PO Q6HR PRN #30 tablet PRN Reason: Pain Referrals: DEBRA BRISCOE MD [Staff Physician] - 3-5 Days Forms: Work/School Release Form(ED) Time of Disposition: 03:38
--- NOTE | 2021-08-09 03:09 | Ultrasound Report ---
ULTRASOUND OBSTETRIC INDICATION / CLINICAL INFORMATION: abd pain pos preg. Clinical Gestational Age (GA) in weeks, days: 8 weeks 2 days based on LMP of 06/12/2021 TECHNIQUE: Transabdominal. COMPARISON: OB ultrasound 07/31/2021 FINDINGS: GESTATIONAL SAC: Well-defined gestational sac with small collection of fluid along sac margin compati ble with subchorionic hemorrhage. As visualized this finding appears to involve less than 25% of the sac margin. YOLK SAC: No significant abnormality. EMBRYO/FETUS: Sexton fetus. - [place] [facility]-Rump Length = 0.25 cm = 5, 6 weeks, days - Heart Rate, beats per minute (if present) = 105 ADNEXA: Right ovary measures 3.6 x 1.9 x 2.8 cm. Left ovary measures 2.0 x 2.4 x 2.6 cm. The ovaries demonstrate no significant abnormality. FREE FLUID: None. ADDITIONAL FINDINGS: None. IMPRESSION: 1. Single, living intrauterine with estimated sonographic age of 5 weeks, 6 days. Active h eart rate. 2. Subchorionic hemorrhage. Short-term follow-up ultrasound recommended to assess stability. Signer Name: Canelo Park II, MD Signed: 08/09/2021 3:05 AM Workstation Name: [id number]
== END 2021-08-09 03:54 | disposition home or self-care (01) ==
LOC: ED 22:08
DX: O20.8 Other hemorrhage in early pregnancy (principal); Z3A.01 Less than 8 weeks gestation of pregnancy; F31.9 Bipolar disorder, unspecified; J45.909 Unspecified asthma, uncomplicated
CPT/HCPCS: 36415; 76801; 80053; 81001; 84702; 85025; 99284

== ENCOUNTER 2021-09-01 11:07 | Emergency (ER) | payer MEDICARE ==
--- NOTE | 2021-09-01 11:34 | Emergency Department Report ---
ED Rash HPI - HPI Chief Complaint: Medical Clearance Stated Complaint: Time Seen by Provider: 09/01/21 11:26 Duration: 1 Day Severity: mild Other History: 31-year-old -Danish female who states that she is comes in complaining of a pimple sized bump on her face near her lip for 2 days. Patient reports she has herpes. She reports that she has an appointment to see her SECURITY COMPLIANCE SPECIALIST on Friday. Patient has tried no mtpe-sbx-qubsemf medication. She denies any fever or chills. ED Review of Systems ROS: Stated complaint: Other details as noted in HPI Comment: All other systems reviewed and negative ED Past Medical Hx - Past Medical History Previous Medical History?: Yes Hx Psychiatric Treatment: Yes (SCHIZOPHRENIA/BIPOLAR) Hx Asthma: Yes Additional medical history: Herpes - Surgical History Past Surgical History?: No - Medications Home Medications: Home Medications Medication Instructions Recorded Confirmed Last Taken Type Albuterol Sulfate [Proventil Hfa] 2 puff IH 4XD #1 hfa.aer.ad 07/10/21 Unknown Rx Guaifenesin/Pseudoephedrne HCl 1 each PO BID #20 tab.er.12h 07/10/21 Unknown Rx [Mucinex D ER Tablet] Acetaminophen [Acetaminophen TAB] 650 mg PO Q6HR PRN #30 tablet 08/09/21 Unknown Rx Rash Exam - Exam General: Vital signs noted. No distress. Alert and acting appropriately. HEENT: No Periorbital Edema, No Conjuctival Injection, No Chemosis, No Perioral Edema, No Tongue Edema, No Uvular Edema, No Compromised Airway, No Drooling Lungs: Yes Good Air Exchange Heart: Yes Regular, No Murmur Skin: Yes Other (1 pustar lesion) Other: Positive: Abdomen Normal, Neurologic Normal, Musculoskeletal Normal ED Course Vital Signs 09/01/21 11:14 Temperature 98.8 F Pulse Rate 90 Respiratory 16 Rate Blood Pressure 109/62 O2 Sat by Pulse 99 Oximetry ED Medical Decision Making - Medical Decision Making 31-year-old -Danish female who states that she is comes in complaining of a pimple sized bump on her face near her lip for 2 days. Patient reports she has herpes. She reports that she has an appointment to see her SECURITY COMPLIANCE SPECIALIST on Friday. Patient has tried no yfhy-lko-rqthhin medication. She denies any fever or chills. Recommend OTC Abreva as it is safe in . Keep appointment her SECURITY COMPLIANCE SPECIALIST. Critical care attestation.: If time is entered above; I have spent that time in minutes in the direct care of this critically ill patient, excluding procedure time. ED Disposition Clinical Impression: Lesion of face Disposition: HOME / SELF CARE / HOMELESS Is pt being admited?: No Does the pt Need Aspirin: No Condition: Stable Additional Instructions: Recommend OTC Abreva as it is safe in . Keep appointment her SECURITY COMPLIANCE SPECIALIST. Referrals: DEBRA BRISCOE MD [Staff Physician] - 3-5 Days Forms: Work/School Release Form(ED) Time of Disposition: 11:37
[2021-09-01 12:18] VITALS: BP 126/83
== END 2021-09-01 12:17 | disposition home or self-care (01) ==
LOC: ED 11:07
DX: O26.899 Other specified pregnancy related conditions, unspecified trimester (principal); L98.9 Disorder of the skin and subcutaneous tissue, unspecified; Z3A.00 Weeks of gestation of pregnancy not specified
CPT/HCPCS: 99282

== ENCOUNTER 2021-10-10 09:38 | Emergency (ER) | payer MEDICARE ==
[2021-10-10 10:12] VITALS: BP 96/50
[2021-10-10 10:12] LABS: Basophils # (Auto) 0.1 K/mm3 (0.0-0.1); Basophils % (Auto) 0.7 % (0.0-1.8); Eosinophils # (Auto) 0.1 K/mm3 (0.0-0.4); Eosinophils % (Auto) 1.1 % (0.0-4.3); Hematocrit 35.4 % (30.3-42.9); Hemoglobin 11.5 gm/dl (10.1-14.3); Lymphocytes # (Auto) 1.2 K/mm3 (1.2-5.4); Lymphocytes % (Auto) 16.2 % (13.4-35.0); Mean Corpuscular HGB Conc 32 % (30-34); Mean Corpuscular Volume 85 fl (79-97); Monocytes # (Auto) 0.4 K/mm3 (0.0-0.8); Monocytes % (Auto) 5.9 % (0.0-7.3); Platelet Count 264 K/mm3 (140-440); Red Blood Count 4.18 M/mm3 (3.65-5.03); Red Cell Distribution Width 13.8 % (13.2-15.2)
[2021-10-10 10:34] LABS: Alanine Aminotransferase 10 units/L (7-56); Albumin 3.8 g/dL (3.9-5); BUN/Creatinine Ratio 12; Bilirubin,Direct < 0.2 mg/dL (0-0.2); Blood Urea Nitrogen 7 mg/dL (7-17); Hemolysis Index 3
--- NOTE | 2021-10-10 11:48 | Emergency Department Report ---
ED Female HPI - General Chief complaint: Abdominal Pain Stated complaint: STOMACH PAIN/5 WKS PREG Time Seen by Provider: 10/10/21 10:38 Source: patient Mode of arrival: Ambulatory Limitations: No Limitations - History of Present Illness Initial comments: Ms. Garcia is a 31-year-old -Angolan female that comes to the emergency room with her . This is her first . This is at least her third time in the emergency room for evaluation. She tells me that she has an CUSHION INSTALLER appointment today. Patient on exam demonstrates special needs. She is talking to her mother on the phone. She denies abdominal pain or vaginal bleeding. I cannot really ascertain why she keeps coming to the emergency room. So I talked with her and her mother about following up with CUSHION INSTALLER because according to today's test results patient is 15 weeks . Last menstrual period she states was in May. Ultrasound reveals an EDC of 1125. Are you Now?: Yes Associated Symptoms: denies other symptoms - Related Data Sexually active: Yes : 1 Previous Rx's Medication Instructions Recorded Last Taken Type Albuterol Sulfate [Proventil Hfa] 2 puff IH 4XD #1 hfa.aer.ad 07/10/21 Unknown Rx Guaifenesin/Pseudoephedrne HCl 1 each PO BID #20 tab.er.12h 07/10/21 Unknown Rx [Mucinex D ER Tablet] Acetaminophen [Acetaminophen TAB] 650 mg PO Q6HR PRN #30 tablet 10/10/21 Unknown Rx Allergies Allergy/AdvReac Type Severity Reaction Status Date / Time Penicillins Allergy Unknown Unknown Verified 10/10/21 10:12 ED Review of Systems ROS: Stated complaint: STOMACH PAIN/5 WKS PREG Other details as noted in HPI Comment: All other systems reviewed and negative ED Past Medical Hx - Past Medical History Previous Medical History?: Yes Hx Psychiatric Treatment: Yes (SCHIZOPHRENIA/BIPOLAR) Hx Asthma: Yes Additional medical history: Herpes - Surgical History Past Surgical History?: No - Family History Family history: no significant - Social History Smoking Status: Never Smoker Substance Use Type: None - Medications Home Medications: Home Medications Medication Instructions Recorded Confirmed Last Taken Type Albuterol Sulfate [Proventil Hfa] 2 puff IH 4XD #1 hfa.aer.ad 07/10/21 Unknown Rx Guaifenesin/Pseudoephedrne HCl 1 each PO BID #20 tab.er.12h 07/10/21 Unknown Rx [Mucinex D ER Tablet] Acetaminophen [Acetaminophen TAB] 650 mg PO Q6HR PRN #30 tablet 10/10/21 Unknown Rx ED Physical Exam - General Limitations: No Limitations General appearance: alert, in no apparent distress - Head Head exam: Present: atraumatic, normocephalic - Eye Eye exam: Present: normal appearance - ENT ENT exam: Present: mucous membranes moist - Neck Neck exam: Present: normal inspection - Respiratory Respiratory exam: Present: normal lung sounds bilaterally. Absent: respiratory distress - Cardiovascular Cardiovascular Exam: Present: regular rate, normal rhythm. Absent: systolic murmur, diastolic murmur, rubs, gallop - GI/Abdominal GI/Abdominal exam: Present: soft, normal bowel sounds - Extremities Exam Extremities exam: Present: normal inspection - Back Exam Back exam: Present: normal inspection - Neurological Exam Neurological exam: Present: alert, oriented X3 - Psychiatric Psychiatric exam: Present: normal affect, normal mood - Skin Skin exam: Present: warm, dry, intact, normal color. Absent: rash ED Course Vital Signs 10/10/21 10:07 Temperature 98.4 F Pulse Rate 82 Respiratory 18 Rate Blood Pressure 96/50 [Right] O2 Sat by Pulse 99 Oximetry ED Medical Decision Making - Lab Data Result diagrams: 10/10/21 09:55 10/10/21 09:55 - Radiology Data Radiology results: report reviewed, image reviewed - Medical Decision Making Vital Signs 10/10/21 10:07 Temperature 98.4 F Pulse Rate 82 Respiratory 18 Rate Blood Pressure 96/50 [Right] O2 Sat by Pulse 99 Oximetry Labs 10/10/21 10/10/21 10/10/21 09:55 09:55 09:55 WBC 7.4 RBC 4.18 Hgb 11.5 Hct 35.4 MCV 85 MCH 27 L MCHC 32 RDW 13.8 Plt Count 264 Lymph % (Auto) 16.2 Camp % (Auto) 5.9 Eos % (Auto) 1.1 Baso % (Auto) 0.7 Lymph # (Auto) 1.2 Camp # (Auto) 0.4 Eos # (Auto) 0.1 Baso # (Auto) 0.1 Seg Neutrophils % 76.1 H Seg Neutrophils # 5.6 Sodium 135 L Potassium 3.8 Chloride 103.7 Carbon Dioxide 22 Anion Gap 13 BUN 7 Creatinine 0.6 Estimated GFR > 60 BUN/Creatinine Ratio 12 Glucose 80 Calcium 9.0 Total Bilirubin < 0.20 Direct Bilirubin < 0.2 Indirect Bilirubin 0.0 AST 11 ALT 10 Alkaline Phosphatase 42 Total Protein 7.2 Albumin 3.8 L Albumin/Globulin Ratio 1.1 Lipase 19 HCG, Quant [id number] H Labs noted. hCG noted. EMR reviewed Ultrasound reviewed Patient and mother educated on findings from today's ER visit. This is at least her third time in the ER. She states that she has an CUSHION INSTALLER appointment today. I have encouraged her to follow-up with the OB because she does not need emergency room care. Each work-up has been normal. The baby appears to be growing as expected. heart tones are present. There is no bleeding. No dysuria. No vaginal discharge. Patient is ambulatory, nontoxic taking p.o. She has normal vital signs. - Differential Diagnosis Rule out AB Critical care attestation.: If time is entered above; I have spent that time in minutes in the direct care of this critically ill patient, excluding procedure time. ED Disposition Clinical Impression: Qualifiers: Weeks of gestation: 15 weeks Qualified Code(s): Z3A.15 - 15 weeks gestation of Disposition: 01 HOME / SELF CARE / HOMELESS Is pt being admited?: No Does the pt Need Aspirin: No Condition: Stable Instructions: First Trimester of , [id number], Abdominal Pain (ED) Additional Instructions: TYLENOL ONLY FOR PAIN SEE OBGYN [facility] REFERRAL BELOW Prescriptions: Acetaminophen [Acetaminophen TAB] 650 mg PO Q6HR PRN #30 tablet PRN Reason: Pain Referrals: DEBRA BRISCOE MD [Staff Physician] - 3-5 Days Time of Disposition: 12:14
--- NOTE | 2021-10-10 12:10 | Ultrasound Report ---
ULTRASOUND OBSTETRIC LIMITED INDICATION / CLINICAL INFORMATION: abd pain. Clinical Gestational Age (GA) in weeks, days: 14 weeks 5 days TECHNIQUE: Transabdominal. COMPARISON: 08/09/2021 FINDINGS: Single live intrauterine in cephalic presentation. MEASUREMENTS: - Biparietal Diameter = 2.9 cm = 15 weeks 2 days - Head Circumference = 10.5 cm = 15 weeks 0 days - Abdominal Circumference = 9.8 cm = 15 weeks 6 days - Femur Length = 1.9 cm = 15 weeks 4 days - Heart Rate (beats per minute): 163 Composite ultrasound age of 15 weeks and 3 days. Amniotic fluid volume is subjectively normal. Posterior placenta is free of the os. Cervix measures 4 .5 cm. IMPRESSION: 1. Single live intrauterine with ultrasound age of 15 weeks 3 days. No significant abnormal ity. Signer Name: Valentin Lares MD Signed: 10/10/2021 12:06 PM Workstation Name: [id number]
== END 2021-10-10 12:24 | disposition home or self-care (01) ==
LOC: ED 09:38
DX: O26.92 Pregnancy related conditions, unspecified, second trimester (principal); Z3A.15 15 weeks gestation of pregnancy; F20.9 Schizophrenia, unspecified; F31.9 Bipolar disorder, unspecified; J45.909 Unspecified asthma, uncomplicated; Z88.0 Allergy status to penicillin
CPT/HCPCS: 36415; 76801; 76805; 80048; 80076; 83690; 84702; 85025; 99283

== ENCOUNTER 2021-11-10 17:03 | Emergency (ER) | payer MEDICARE ==
[2021-11-10] MEDS ORDERED: ACETAMINOPHEN 500 MG TAB PO ONE (18:16)
[2021-11-10 18:24] LABS: Bilirubin,Urine NEG (Negative); Blood,Urine NEG (Negative); Color,Urine Yellow (Yellow); Protein,Urine <15 mg/dL mg/dL (Negative); Urobilinogen,Urine < 2.0 mg/dL (<2.0)
--- NOTE | 2021-11-10 18:29 | Ultrasound Report ---
ULTRASOUND OBSTETRIC COMPLETE INDICATION / CLINICAL INFORMATION: abd pain with 19.5 weeks . Clinical Gestational Age (GA) in weeks, days: 19 weeks 5 days TECHNIQUE: Transabdominal. COMPARISON: 10/10/2021 FINDINGS: NUMBER: Single PRESENTATION: transverse. head to the maternal left. PLACENTA: anterior and free of the os. AMNIOTIC FLUID VOLUME: normal AMNIOTIC FLUID INDEX (KEITH) in cm (if measured): Not measured ANATOMY: organs (including the bladder, stomach, kidneys, umbilical cord, cord insertion, spine ) are vi sualized and show no significant abnormality. The heart, diaphragm, intracranial structures wer e not visualized well for technical reasons. MEASUREMENTS: - Biparietal Diameter = 4.47 cm = 19 weeks, 4 days - Head Circumference = 16.48 cm = 19 weeks, 1 days - Abdominal Circumference = 15.44 cm = 20 weeks, 4 days - Femur Length = 3.06 cm = 19 weeks, 3 days - Estimated Weight (in grams, if calculated): 325 g - Heart Rate (beats per minute): 155 ADDITIONAL FINDINGS: Cervical length is 4.5 cm.. PERCENTILE ESTIMATED WEIGHT (if calculated): AVERAGE ULTRASOUND AGE (AUA) in weeks, days = 19 weeks 5 days IMPRESSION: 1. Single intrauterine with AUA of 19 weeks, 5 days 2. Limited evaluation of anatomy. 2. No significant sonographic abnormality. Signer Name: Marjorie Schulz MD Signed: 11/10/2021 6:25 PM Workstation Name: [id number]
[2021-11-10 18:36] LABS: Mucus,Urine 3+ /HPF; RBC,Urine < 1.0 /HPF (0.0-6.0)
[2021-11-10 19:22] LABS: Basophils % (Auto) 0.4 % (0.0-1.8); Eosinophils # (Auto) 0.1 K/mm3 (0.0-0.4); Hematocrit 34.6 % (30.3-42.9); Hemoglobin 11.2 gm/dl (10.1-14.3); Lymphocytes # (Auto) 1.3 K/mm3 (1.2-5.4); Lymphocytes % (Auto) 18.8 % (13.4-35.0); Mean Corpuscular HGB Conc 33 % (30-34); Mean Corpuscular Volume 85 fl (79-97); Monocytes # (Auto) 0.5 K/mm3 (0.0-0.8); Monocytes % (Auto) 7.6 % (0.0-7.3); Platelet Count 281 K/mm3 (140-440); Red Blood Count 4.05 M/mm3 (3.65-5.03); Red Cell Distribution Width 14.6 % (13.2-15.2)
--- NOTE | 2021-11-10 19:22 | Emergency Department Report ---
ED Abdominal Pain HPI - General Chief Complaint: Abdominal Pain Stated Complaint: PAIN Source: patient Mode of arrival: Ambulatory Limitations: No Limitations - History of Present Illness Initial Comments: Patient is a A0 31-year-old -Croat[place] female who is approximately 19 weeks gestation presents to the ED with complaint of acute onset persistent diffuse lower abdominal pain with vaginal spotting after having sexual intercourse 24 hours ago. Patient states that the pain has been constant and persistent especially in the last 6 hours. Patient states that she has not taken any medications for pain. Patient denies dizziness, syncope, nausea and vomiting, diarrhea, traumatic injury, fever and chills, dysuria, urinary frequency and urgency, cough, sore throat and headache MD Complaint: abdominal pain (Diffuse lower abdominal pain), other (Vaginal spotting after sexual intercourse, patient is approximately 19.5 weeks gestation) -: hour(s) (24) Location: diffuse, RUQ Radiation: none Migration to: no migration Severity scale (0 -10): 10 Quality: cramping, aching, sharp Consistency: constant Improves With: nothing Worsens With: nothing Context: other (19 weeks gestation, s/p sexual intercourse) Associated Symptoms: denies other symptoms, hematuria, anorexia. denies: nausea, vomiting, diarrhea, fever, chills, dysuria, hematemesis, hematochezia - Related Data Previous Rx's Medication Instructions Recorded Last Taken Type Albuterol Sulfate [Proventil Hfa] 2 puff IH 4XD #1 hfa.aer.ad 07/10/21 Unknown Rx Guaifenesin/Pseudoephedrne HCl 1 each PO BID #20 tab.er.12h 07/10/21 Unknown Rx [Mucinex D ER Tablet] Acetaminophen [Acetaminophen TAB] 650 mg PO Q6HR PRN #30 tablet 10/10/21 Unknown Rx Acetaminophen [Tylenol] 500 mg PO Q6HR PRN #30 tablet 11/10/21 Unknown Rx Allergies Allergy/AdvReac Type Severity Reaction Status Date / Time Penicillins Allergy Unknown Unknown Verified 10/10/21 10:12 ED Review of Systems ROS: Stated complaint: PAIN Other details as noted in HPI Constitutional: denies: chills, fever Eyes: denies: eye pain, eye discharge, vision change ENT: denies: ear pain, throat pain Respiratory: denies: cough, shortness of breath, wheezing Cardiovascular: denies: chest pain, palpitations Endocrine: no symptoms reported Gastrointestinal: abdominal pain (Suprapubic pain), nausea. denies: diarrhea Genitourinary: abnormal menses (Vaginal bleeding). denies: urgency, dysuria, frequency, discharge Musculoskeletal: denies: back pain, joint swelling, arthralgia Skin: denies: rash, lesions Neurological: denies: headache, weakness, paresthesias Psychiatric: denies: anxiety, depression Hematological/Lymphatic: denies: easy bleeding, easy bruising ED Past Medical Hx - Past Medical History Previous Medical History?: Yes Hx Psychiatric Treatment: Yes (SCHIZOPHRENIA/BIPOLAR) Hx Asthma: Yes Additional medical history: Herpes - Surgical History Past Surgical History?: No - Social History Smoking Status: Never Smoker Substance Use Type: None - Medications Home Medications: Home Medications Medication Instructions Recorded Confirmed Last Taken Type Albuterol Sulfate [Proventil Hfa] 2 puff IH 4XD #1 hfa.aer.ad 07/10/21 Unknown Rx Guaifenesin/Pseudoephedrne HCl 1 each PO BID #20 tab.er.12h 07/10/21 Unknown Rx [Mucinex D ER Tablet] Acetaminophen [Acetaminophen TAB] 650 mg PO Q6HR PRN #30 tablet 10/10/21 Unknown Rx Acetaminophen [Tylenol] 500 mg PO Q6HR PRN #30 tablet 11/10/21 Unknown Rx ED Physical Exam - General Limitations: No Limitations General appearance: alert, in no apparent distress - Head Head exam: Present: atraumatic, normocephalic, normal inspection - Eye Eye exam: Present: normal appearance, PERRL, EOMI Pupils: Present: normal accommodation - ENT ENT exam: Present: normal exam, normal orophraynx, mucous membranes moist, TM's normal bilaterally, normal external ear exam - Neck Neck exam: Present: normal inspection, full ROM. Absent: tenderness - Respiratory Respiratory exam: Present: normal lung sounds bilaterally. Absent: respiratory distress, wheezes, rales, rhonchi, stridor, chest wall tenderness, accessory muscle use, decreased breath sounds, prolonged expiratory - Cardiovascular Cardiovascular Exam: Present: regular rate, normal rhythm, normal heart sounds. Absent: systolic murmur, diastolic murmur, rubs, gallop - GI/Abdominal GI/Abdominal exam: Present: soft, tenderness (Palpable diffuse lower abdominal tenderness), normal bowel sounds. Absent: guarding, rebound, hyperactive bowel sounds, mass - Extremities Exam Extremities exam: Present: normal inspection, full ROM, normal capillary refill - Back Exam Back exam: Present: normal inspection, full ROM. Absent: tenderness, CVA tenderness (R), CVA tenderness (L), muscle spasm, paraspinal tenderness, vertebral tenderness - Neurological Exam Neurological exam: Present: alert, oriented X3, CN II-XII intact, normal gait, reflexes normal - Psychiatric Psychiatric exam: Present: normal affect, normal mood - Skin Skin exam: Present: warm, dry, intact, normal color. Absent: rash ED Course Vital Signs 11/10/21 17:31 Temperature 99.5 F Pulse Rate 90 Respiratory 18 Rate Blood Pressure 104/61 O2 Sat by Pulse 100 Oximetry ED Medical Decision Making - Lab Data Result diagrams: 11/10/21 18:52 11/10/21 18:52 - Radiology Data Radiology results: report reviewed, image reviewed [facility] [address] [place] [address] Ultrasound Report Signed Patient: MARIANELA SIMMONS MR#: [id number] : 1990 Acct:[id number] Age/Sex: 31 / F ADM Date: 11/10/21 Loc: ED Attending Dr: Ordering Physician: CHRISSY SCHAEFFER MD Date of Service: 11/10/21 Procedure(s): US OB >= 14 weeks Fetus Accession Number(s): [id number] cc: CHRISSY SCHAEFFER MD ULTRASOUND OBSTETRIC COMPLETE INDICATION / CLINICAL INFORMATION: abd pain with 19.5 weeks . Clinical Gestational Age (GA) in weeks, days: 19 weeks 5 days TECHNIQUE: Transabdominal. COMPARISON: 10/10/2021 FINDINGS: NUMBER: Single PRESENTATION: transverse. head to the maternal left. PLACENTA: anterior and free of the os. AMNIOTIC FLUID VOLUME: normal AMNIOTIC FLUID INDEX (KEITH) in cm (if measured): Not measured ANATOMY: organs (including the bladder, stomach, kidneys, umbilical cord, cord insertion, spine ) are visualized and show no significant abnormality. The heart, diaphragm, intracranial structures were not visualized well for technical reasons. MEASUREMENTS: - Biparietal Diameter = 4.47 cm = 19 weeks, 4 days - Head Circumference = 16.48 cm = 19 weeks, 1 days - Abdominal Circumference = 15.44 cm = 20 weeks, 4 days - Femur Length = 3.06 cm = 19 weeks, 3 days - Estimated Weight (in grams, if calculated): 325 g - Heart Rate (beats per minute): 155 ADDITIONAL FINDINGS: Cervical length is 4.5 cm.. PERCENTILE ESTIMATED WEIGHT (if calculated): AVERAGE ULTRASOUND AGE (AUA) in weeks, days = 19 weeks 5 days IMPRESSION: 1. Single intrauterine with AUA of 19 weeks, 5 days 2. Limited evaluation of anatomy. 2. No significant sonographic abnormality. Signer Name: Marjorie Schulz MD Signed: 11/10/2021 6:25 PM Workstation Name: [id number] Transcribed By: Dictated By: Marjorie Schulz MD Electronically Authenticated By: Marjorie Schulz MD Signed Date/Time: 11/10/211824 DD/ 20 TD/TT: - Medical Decision Making This is a A0 31-year-old -Croat[place] female who is approximately 19 weeks gestation presents to the ED with complaint of acute onset persistent diffuse lower abdominal pain with vaginal spotting after having sexual intercourse 24 hours ago. Patient states that the pain has been constant and persistent especially in the last 6 hours. Patient states that she has not taken any medications for pain. In the ED, patient is alert and oriented x3 and is not in any distress. Patient is hemodynamically stable. Lab test results were reviewed and are all nonactionable. Pelvic ultrasound showed a single IUP of approximately 19 weeks and 5 days and with a heart rate of 155 bpm. Patient was treated for pain in the ED. Patient was discharged home on medications, Tylenol and advised to follow-up with TALENT DEVELOPMENT SPECIALIST physician in 3 to 5 days for reevaluation or return to the ED immediately if symptoms get worse. - Differential Diagnosis UTI; ovarian cyst; subchorionic bleed; fibroid; PPROM Critical care attestation.: If time is entered above; I have spent that time in minutes in the direct care of this critically ill patient, excluding procedure time. ED Disposition Clinical Impression: Abdominal pain during in second trimester Disposition: 01 HOME / SELF CARE / HOMELESS Is pt being admited?: No Does the pt Need Aspirin: No Condition: Stable Instructions: Abdominal Pain During , [place], Abdominal Pain, Adult, Umve-se-Dozt, Flank Pain, Adult, [id number], Abdominal Pain (ED) Additional Instructions: All lab test results were reviewed and are all nonactionable. Transvaginal ultrasound showed a single live intrauterine of approximately 19 weeks and 5 days, with a heart rate of 155 bpm. Therefore maintain a complete pelvic rest for 7 to 10 days and follow-up with the TALENT DEVELOPMENT SPECIALIST physician in 5 to 7 days for reevaluation. Return to the ED immediately if symptoms get worse. Prescriptions: Acetaminophen [Tylenol] 500 mg PO Q6HR PRN #30 tablet PRN Reason: Pain , Severe (7-10) Referrals: SWETA RODRIGUEZ MD [Staff Physician] - 3-5 Days Time of Disposition: 19:34 Print Language: RWANDAN
[2021-11-10 19:42] LABS: Alanine Aminotransferase 11 units/L (7-56); Albumin 3.8 g/dL (3.9-5); Blood Urea Nitrogen 7 mg/dL (7-17); Calcium 9.1 mg/dL (8.4-10.2); Hemolysis Index 3
[2021-11-10 19:45] LABS: BUN/Creatinine Ratio 12
[2021-11-10 20:58] VITALS: BP 126/66
== END 2021-11-10 21:06 | disposition home or self-care (01) ==
LOC: ED 17:03
DX: O26.892 Other specified pregnancy related conditions, second trimester (principal); R10.31 Right lower quadrant pain; F31.9 Bipolar disorder, unspecified; J45.909 Unspecified asthma, uncomplicated; Z88.0 Allergy status to penicillin; Z79.899 Other long term (current) drug therapy; Z3A.16 16 weeks gestation of pregnancy
CPT/HCPCS: 36415; 76805; 80053; 81001; 84702; 85025; 99284

== ENCOUNTER 2021-12-01 22:04 | Outpatient (CLI) | payer MEDICARE ==
[2021-12-01 22:25] VITALS: BP 102/56
[2021-12-01] MEDS ORDERED: LACTATED RINGERS 1,000 ML IV ONE (22:43)
[2021-12-01] MEDS ORDERED: ACETAMINOPHEN 500 MG TAB PO ONE (22:52)
--- NOTE | 2021-12-01 23:23 | Event Note ---
Date: 12/01/21 Patient presented by EMS, she appears to have a speech impediment, however states she had a panic attack and has a PELLETIER. States she is 26weeks and receives care at [facility]. She states she usually gets an injection for anxiety and is scheduled to have an injection this 12/07/2021. She also requests Tylenol for a PELLETIER. [facility] revealed she has an US 08/08/21 at 5w6d that places her at [id number] tonight with XENA 04/04/2022. Also she does have a history of psychiatric disorders. No complaints of SI/HI. FHT's 160, appropriate variability for GA AfebVSS Abd soft, NT Will start IVF hydration and allow Tylenol, observe for now
== END 2021-12-02 09:37 | disposition home or self-care (01) ==
LOC: TRG 22:04 → APU 22:13 → TRG 12-02 09:37
PROVIDERS: ATTEND Obstetrics & Gynecology
DX: O99.342 Other mental disorders complicating pregnancy, second trimester (principal); F41.0 Panic disorder [episodic paroxysmal anxiety]; F32.A Depression, unspecified; O26.892 Other specified pregnancy related conditions, second trimester; R51.9 Headache, unspecified; O99.282 Endocrine, nutritional and metabolic diseases complicating pregnancy, second trimester; E03.9 Hypothyroidism, unspecified; O99.512 Diseases of the respiratory system complicating pregnancy, second trimester; J45.909 Unspecified asthma, uncomplicated; Z3A.22 22 weeks gestation of pregnancy
CPT/HCPCS: 59025; 96360; J7120